=== PATIENT | female | born 1990 | race Caucasian/White ===

== ENCOUNTER 2019-10-03 12:20 | Emergency (ER) | payer BC, SELFPAY ==
--- NOTE | ~2019-10-03 | US_ITS ---
EXAMINATION: US pelvic complete w TV EXAM DATE: 10/03/2019 13:50 INDICATION: Right-sided pelvic pain ID reportedly out of position. TECHNIQUE: Pelvic transabdominal and transvaginal sonogram was performed. There are multiple graysca le and Doppler images available for interpretation. There is no prior study for comparison. FINDINGS: Uterus measures 9.4 x 4.4 x 4.9 cm, with IUD identified, appears to be located in the lowe r uterine segment of the endometrium, cervix. Endometrial stripe measures 9 mm, within normal limits. There is no free pelvic fluid. Right adnexa: The right ovary is normal in size and morphology. Left adnexa: The ovary measures 4.1 x 2.7 x 2.9 cm, with cystic lesion demonstrating protein/fluid le shakira, most likely dominant follicle or hemorrhagic cyst. Ovarian vascular flow confirmed. IMPRESSION: 1. IUD appears to be lower uterine segment. 2. Left ovarian lesion likely dominant follicle or hemorrhagic cyst. Less likely endometrioma. Consi ambrosio 6 week follow-up pelvic sonogram. Reviewed, dictated and finalized at location A. IMPRESSION: 1. IUD appears to be lower uterine segment. 2. Left ovarian lesion likely dominant follicle or hemorrhagic cyst. Less like ly endometrioma. Consider 6 week follow-up pelvic sonogram.
[2019-10-03 12:22] VITALS: BP 144/78; PULSE 81; RESP 20; TEMP 36.7; O2SAT 100
[2019-10-03 12:54] LABS: Add Urine Microscopic? YES; Appearance Urine Clear (Clear); Bacteria Urine Trace /hpf; Bilirubin Urine Negative (Negative); Blood Urine Negative (Negative); Color Urine Yellow (Yellow); Glucose Urine UA Negative (Negative); Ketones Urine Trace mg/dL (Negative); Leukocyte Esterase Ur Negative LEU/UL (Negative); Mucus Urine Few /lpf; Nitrate Urine Negative (Negative); Protein Urine 1+ mg/dL (Negative); Specific Grav Ur 1.023 (1.001-1.035); Squamous Epithelial Cell Urine Many /hpf (Few); Urobilinogen Urine Negative mg/dL (<2.0)
--- NOTE | 2019-10-03 13:03 | ED.ABDPAIN ---
HPI - Abdominal Pain General Chief Complaint: Abdominal Pain <Yunior Delacruz PA-C - Last Filed: 10/03/19 14:45> Stated Complaint: Abd pain, IUD out of place <Yunior Delacruz PA-C - Last Filed: 10/03/19 14:45> Time Seen by Provider: 10/03/19 12:22 <Yunior Delacruz PA-C - Last Filed: 10/03/19 14:45> Source: patient <Yunior Delacruz PA-C - Last Filed: 10/03/19 14:45> Mode of arrival: ambulatory <Yunior Delacruz PA-C - Last Filed: 10/03/19 14:45> Limitations: no limitations <Yunior Delacruz PA-C - Last Filed: 10/03/19 14:45> History of Present Illness HPI narrative: Patient is a 29-year-old female who presents to emergency department for evaluation of pelvic discomfort for the last 5 days started off as a cramping aching pain for which she went to outside emergency department 2 days ago had CAT scan and blood work performed was told that her IUD was potentially in the wrong location patient since the visit continues to have worsening pain. Patient denies any vaginal bleeding or discharge does note some pain with urination. Patient denies any fever chills URI symptoms. When the pain intensifies patient feels near syncopal. Patient has taken [id number] medications with minimal improvement <Yunior Delacruz PA-C - Last Filed: 10/03/19 14:45> Related Data Allergies/Adverse Reactions: Allergies Allergy/AdvReac Type Severity Reaction Status Date / Time No Known Allergies Allergy Verified 10/03/19 12:44 <Yunior Delacruz PA-C - Last Filed: 10/03/19 14:45> Review of Systems Review of Systems: All systems reviewed & are unremarkable except as noted in HPI and below <Yunior Delacruz PA-C - Last Filed: 10/03/19 14:45> PMFSH Social History Social History: Social History (Updated 10/03/19 @ 13:06 by Yunior Delacruz PA-C) Smoking status: Never smoker <Yunior Delacruz PA-C - Last Filed: 10/03/19 14:45> Exam Narrative: Exam Narrative: GENERAL: Well-appearing, well-nourished, and in no acute distress. HEAD: Normocephalic, atraumatic. EYES: PERRLA and EOMI. ENT: Nares clear, no rhinorrhea or epistaxis. Mucous membranes moist. Oropharynx without tonsillar hypertrophy exudate or other lesions. CHEST: Clear to auscultation. No respiratory distress. No wheezes rales or rhonchi HEART: Regular rate and rhythm. No murmur heard. Normal peripheral pulses. ABDOMEN: Soft, nontender, nondistended. EXTREMITIES: Normal range of motion. No edema. SKIN: Warm, dry, no rash. NEURO: No focal deficits. Alert and oriented x3. Cranial nerves II through XII grossly intact PSYCH: Normal mood and affect. <Yunior Delacruz PA-C - Last Filed: 10/03/19 14:45> Course Course Emergency Course: Patient in the room in no distress aware of case findings treatment plan and diagnosis agreeing to follow-up with the tube molder fiberglass on Saturday as advised and recommended patient provided with reasons to return and agrees to do so if symptoms worsen <Yunior Delacruz PA-C - Last Filed: 10/03/19 14:45> PAINTER INTERIOR FINISH/PA Physician Supervision For this patient encounter, I reviewed the PAINTER INTERIOR FINISH or PA documentation, treatment plan, and medical decision making; and I had shvq-[id number] time with this patient. Saw patient at the bedside in conjunction with physician graduate assistant. Patient reports pain has improved after morphine and Toradol. Patient has hemorrhagic cyst noted on ultrasound. CRITICAL POWER INSTALL TECHNICIAN follow-up has been arranged by physician graduate assistant. Discussed with patient pain management with ibuprofen and if needed may take Center for breakthrough pain. Also advised on additional acetaminophen in addition to Center for pain management and to avoid narcotic as much as possible. <Kimberly Hill MD - Last Filed: 10/03/19 15:31> Consultations Consultation #1: Discussed case with Dr. Malagon who agrees to follow the patient notes that she can be discharged with pain medication and he will follow-up wi
[2019-10-03] MEDS: SODIUM CHLORIDE 0.9% IV 1,000 ML 999 ML IV CONT (13:15)
[2019-10-03 13:19] LABS: Basophils Percent Auto 0.3 % (0.2-1.2); Eosinophils Percent Auto 0.1 % (0-4.4); Immature Granulocyte Absolute 0.02 K/mm3 (0.00-0.031); Immature Granulocyte Percent A 0.3 % (0-0.5); Lymphocytes Absolute Auto 0.75 K/mm3 (0.9-3.2); Lymphocytes Percent Auto 10.1 % (18.3-44.2); Mean Corpuscular HGB Conc 32.5 g/dl (32-36); Mean Corpuscular Hemoglobin 29.7 pg (26-34); Mean Corpuscular Volume 91.5 fl (80-100); Mean Platelet Volume 10.1 fl (7.4-10.4); Monocytes Absolute Auto 0.6 K/mm3 (0.1-0.6); Monocytes Percent Auto 7.5 % (2.6-8.5); Neutrophils Absolute Auto 6.1 K/mm3 (1.3-6.7); Neutrophils Percent Auto 81.7 % (45.5-73.1); Platelet Count Result 199 k/mm3 (150-375); Red Blood Count 4.37 M/mm3 (4.2-5.4); Red Cell Distribution Width 12.3 % (11.5-14.5); White Blood Count 7.4 K/mm3 (4.5-10.0)
[2019-10-03 13:30] LABS: Alanine Aminotransferase 13 U/L (4-35); Albumin Level 4.7 g/dL (3.5-5.1); Alkaline Phosphatase 54 U/L (38-126); Aspartate Amino Transferase 28 U/L (14-36); Bilirubin,Total 0.5 mg/dL (0.2-1.3); Blood Urea Nitrogen 14 mg/dL (7-17); Calcium 9.3 mg/dL (8.4-10.2); Carbon Dioxide 27 mmol/L (22-30); Chloride 108 mmol/L (98-107); Estimated CRCL calculation 60 ml/min; Estimated Glomerular Filt Rate > 60; Glucose 111 mg/dL (65-105); Lipase 72 U/L (23-300); Sodium 139 mmol/L (137-145)
[2019-10-03] MEDS: KETOROLAC 30 MG/ML VIAL (*BKC) IV PUSH (14:17)
[2019-10-03 14:18] VITALS: BP 120/80; PULSE 64; RESP 18; O2SAT 100
[2019-10-03] MEDS: MORPHINE SULFATE 4 MG/ML INJ IV PUSH (14:50)
[2019-10-03 15:20] VITALS: BP 113/75; PULSE 64; RESP 16; O2SAT 100
== END 2019-10-03 15:22 | disposition home or self-care (01) ==
PROVIDERS: Emergency Medicine Emergency Medical Services; Emergency Provider Emergency Medicine
DX: N83.9 Noninflammatory disorder of ovary, fallopian tube and broad ligament, unspecified (principal); Z97.5 Presence of (intrauterine) contraceptive device
CPT/HCPCS: 36415; 76830; 76856; 80053; 81001; 81025; 83690; 85025; 87086; 87088; 96361; 96374; 96375; 99284; J0131; J1885; J2270; J7030

== ENCOUNTER 2019-10-06 00:36 | Day surgery (SDC) | payer BC, SELFPAY ==
[2019-10-06] VITALS (11 sets, daily range): BP systolic 110–138; BP diastolic 61–83; PULSE 60–88; RESP 10–20; TEMP 36.2–36.9; O2SAT 96–100; BMI 20.5
[2019-10-06] MEDS: LACTATED RINGERS 1,000 ML 30 ML IV CONT ×2 (09:25→13:02)
--- NOTE | 2019-10-06 10:32 | PM.IMHP ---
H&P: HPI History of Present Illness Chief complaint: Diagnostic Pelvic Lap Narrative: Maris Chapman is a 29 year old female presents for evaluation of pelvic pain. This pain started 4-5 days ago for which she went to the emergency room at [facility] and underwent CT scan which showed misplaced IUD but no other significant abnormalities. Pain persisted and increased presents for [facility] Emergency Room ultrasound performed which revealed the above as well as a 4cm left ovarian cyst. Patient was seen yesterday in the office significant mild discomfort IUD was removed without complication. Decision at that time was to give this a short period of time to see if the IUD removal helped which she states it did but still is in a fair amount of discomfort. She continues today with severe discomfort more in the right lower quadrant but throughout the lower pelvis. Denies urinary tract and/or GI symptoms. Denies fever chills or other constitutional symptoms. Review of Systems Review of Systems: All systems reviewed & are unremarkable except as noted in HPI and below PMFSH Social History Social History Smoking status: Never smoker Meds Home Medications and Allergies Home Medications Medication Instructions Recorded Confirmed Type hydrocodone-acetaminophen 1 tablet PO Q6H PRN #10 tablet 10/03/19 10/06/19 Rx ibuprofen 600 mg PO Q6H PRN #30 tablet 10/03/19 10/06/19 Rx Allergies Allergy/AdvReac Type Severity Reaction Status Date / Time No Known Allergies Allergy Verified 10/06/19 09:38 Vital Signs Vital Signs - 24 hr 10/06/19 08:40 Temperature 36.9 C Pulse Rate 75 Respiratory Rate 16 Blood Pressure 134/83 Pulse Oximetry 100 Exam Const: General: uncomfortable Resp: Auscultation: clear to auscultation bilaterally Cardio: Rate: regular rate Rhythm: regular rhythm GI: Auscultation: normal bowel sounds Other: Tender throughout on exam no guarding or rebound noted. : Other: Uterus is retroflexed. Entire to the pelvic exam is tender. Left adnexa moderately enlarged. Assessment and Plan Assessment and plan (1) Pelvic pain: Code(s): R10.2 - Pelvic and perineal pain Status: Acute (2) Ovarian cyst: Code(s): N83.209 - Unspecified ovarian cyst, unspecified side Status: Acute Additional Plan Will proceed with laparoscopic evaluation with ovarian cystectomy possible oophorectomy. If further abnormalities are encountered during this procedure they will be dealt with accordingly as well.
--- NOTE | 2019-10-06 10:39 | WPDANESEPPF ---
Anes - Initial Pre Proc Eval Procedure: Operation Date: 10/06/19 12:15 Proposed Procedures p Diagnostic Pelvic Laparoscopy - Endy Malagon MD Date/Time: 10/06/19 10:39 Surgeon: Endy Malagon MD Pre Op Diagnosis: Diagnostic Pelvic Lap Patient Data Age: 29 Gender: F Height: 5 ft 3 in Weight: 52.6 kg Last Vital Signs Temp 36.9 C 10/06/19 08:40 Pulse 75 10/06/19 08:40 Resp 16 10/06/19 08:40 BP 134/83 10/06/19 08:40 Pulse Ox 100 10/06/19 08:40 Allergies Allergy/AdvReac Type Severity Reaction Status Date / Time No Known Allergies Allergy Verified 10/06/19 09:38 Home Medications Medication Instructions Recorded Confirmed Type hydrocodone-acetaminophen 1 tablet PO Q6H PRN #10 tablet 10/03/19 10/06/19 Rx ibuprofen 600 mg PO Q6H PRN #30 tablet 10/03/19 10/06/19 Rx Patient hx anesthesia problems: none Family hx anesthesia problems: none PMFSH Social History Social History Smoking status: Never smoker Anes - Eval Final PreProcedure Day of Procedure 10/06/19 10:39 Patient weight: normal Heart: regular rate and rhythm Lungs: clear to auscultation Airway: Mallampati scale class II Neurological: alert and oriented Last oral intake: >/= 8 hours ASA classification: II Emergent: no Anesthetic plan: proceed Anesthesia type and monitoring: general GIVS and standard monitoring Informed Consent: The patient's anesthetic plan and its attendant risks and benefits were discussed with the patient/family/POA. Questions were solicited and answers provided to the satisfaction of the patient/family/POA.
[2019-10-06] MEDS: KETOROLAC 30 MG/ML VIAL (*BKC) IM (12:25)
--- NOTE | 2019-10-06 12:46 | SUR.OPER ---
ebl:10cc
--- NOTE | 2019-10-06 12:52 | SUR.OPER ---
urine:100cc
--- NOTE | 2019-10-06 13:05 | P.OPB_ITS ---
Procedure Note - Brief Procedure Note - Brief Date of procedure: 10/06/19 Pre-op diagnosis: Diagnostic Pelvic Lap 1. Adnexal mass 2. Pelvic pain Post-op diagnosis: same Procedure performed: 1. Diagnostic laparoscopy 2. Laparoscopic left cystectomy (see ovary) 3. Peritoneal biopsy 4. Ablation of endometriosis via electrocautery Description of procedure: Patient was prepped and draped in usual manner for this procedure. Cervical instruments were placed for uterine mobility during the case. Abdominal trocar sites were marked and placed under direct visualization. The scope was placed with evaluation of the pelvis noting endometriosis throughout the posterior cul-de-sac right greater than left right and left pelvic sidewalls as well as left ovarian endometrioma. The left ovary was also densely adhered to the pelvic sidewall. Using blunt instruments the left ovary was bluntly dissected off the pelvic sidewall and the ovarian cyst was drained and removed as able. The area in the posterior cul-de-sac was cauterized using electrocautery throughout. One area on the left side of the cul-de-sac was removed as a peritoneal biopsy. Irrigation was undertaken and there was no bleeding. All areas which could be removed via electrocautery had been done. Gas was allowed to escape incisions approximately using 4 Monocryl after the trocars removed. Anesthesia: GLMA Surgeon: Endy Malagon MD Estimated blood loss (mL): 5 Drains: No Packing: No Pathology: yes Complications: No immediate complications Condition: stable Disposition: PACU Findings: 1. Left ovarian endometrioma 2. Extensive endometriosis 3. Uterus tubes other than the endometriosis in the posterior cul-de-sac did appear n ormal. There was no clubbing of the fallopian tubes and no other specific abnormalities noted other than that already mentioned above.
--- NOTE | 2019-10-06 13:15 | SUR.PHASEI ---
1305- SHIVERING. LANNY THOMASER APPLIED.
--- NOTE | 2019-10-06 15:08 | SUR.PHASEII ---
1430; PT DROWSY, RELAXED. AWAKENS EASILY. WHISPERING TO SPEAK. STATES SHE IS TIRED. SPOUSE AT BEDSIDE. RESP EVEN UNLABORED. P,W,D. 1456; PT GIVEN OXYCODONE 5MG PO PER REQUEST. PT RELAXED. RESTING QUIETLY. SPOUSE AT BEDSIDE.
--- NOTE | 2019-10-06 16:04 | SUR.PHASEII ---
1545; PT C/O BILAT SHOULDER SORENESS. WARM BLANKET WRAPPED AROUND HER.
--- NOTE | 2019-10-06 16:06 | SUR.PHASEII ---
1600; PT MEETS DISCHARGE CRITERIA. STATES SHE WILL GET DRESSED SOON. RESTING QUIETLY.
== END 2019-10-06 16:23 | disposition home or self-care (01) ==
LOC: ANHOUTPT 09:10 → ANHSURGERY 11:36
PROVIDERS: Visit Provider Obstetrics & Gynecology
PROC: (CPT 49320; principal; 2019-10-06 12:15)
DX: N80.3 Endometriosis of pelvic peritoneum (principal); D27.1 Benign neoplasm of left ovary; R10.2 Pelvic and perineal pain
CPT/HCPCS: 58662; 88305; A9270; J0330; J1100; J1885; J2250; J2704; J3010; J7120